=== PATIENT | female | born 1985 | race African-American/Black ===

== ENCOUNTER 2016-09-11 21:40 | Emergency (ER) | payer OTHER ==
[~2016-09-11] VITALS: Ht 160 cm; Wt 71.7 kg
[~2016-09-11 21:40] MED LIST: ACETAMINOPHEN-120 ML PO; ACETAMINOPHEN325 M1 PO; APAP/CODEINE ELI5 M1 OR; CARAFATE 1 GM TA1 G1 GT; CIPROFLOXACIN500 M1 PO; DERMOPLAST SPRAY TP; ERYTHROMYCIN E3.5 G1 OPHTHALMIC; FLEXERIL PO; HYDROCORTISONE 1% TOP; IBUPROFEN 400400 M2 PO; IBUPROFEN 600600 M1 PO; IBUPROFEN 800800 MG PO; IRON18 MG PO; LANSINOH 60 GM60 GM TOP; LOMOTIL TABLET1 EACH PO; METROGEL-VAGINA70 GM VG; NOHOMEMEDICATIONS; NORCO 5-325 TA1 EACH PO; PEPCID20 MG PO; PHENERGAN 25 MG25 M1 PO; PRENATAL VITAMIN OR; PREVACID 30MG C30 M1 PO; PRILOSEC40 MG PO; SENOKOT-S TABL1 EACH PO; SUDAFED30 MG PO; TUCKS MEDICATE1 EAC1 TP; TUMS DUAL ACTI1 EACH PO; ULTRAM 50MG TAB50 MG PO; ZOFRAN ODT4 MG PO
[2016-09-11] MEDS ORDERED: NAPROSYN500 MG PO (23:39)
[2016-09-11] MEDS ORDERED: TRAMADOL 50 MG50 MG PO (23:39)
[2016-09-11 23:50] VITALS: BP 115/68
== END 2016-09-11 23:50 | disposition home or self-care (01) ==
LOC: ER 21:40
DX: S46.911A Strain of unspecified muscle, fascia and tendon at shoulder and upper arm level, right arm, initial encounter (principal); F10.99 Alcohol use, unspecified with unspecified alcohol-induced disorder; X50.9XXA Other and unspecified overexertion or strenuous movements or postures, initial encounter; Y93.89 Activity, other specified; Y92.89 Other specified places as the place of occurrence of the external cause; Y99.8 Other external cause status

== ENCOUNTER 2017-04-17 20:38 | Emergency (ER) | payer OTHER ==
[~2017-04-17] VITALS: Ht 160 cm; Wt 68.0 kg
[~2017-04-17 20:38] MED LIST changes: +NAPROSYN500 MG PO; +TRAMADOL 50 MG50 MG PO
[2017-04-17 21:04] LABS: URINE BILIRUBIN NEGATIVE (Negative); URINE BLOOD NEGATIVE (Negative); URINE CLARITY CLEAR; URINE COLOR YELLOW; URINE GLUCOSE-RANDOM* NEGATIVE (Negative); URINE KETONES NEGATIVE (Negative); URINE LEUKOCYTES-REFLEX NEGATIVE (Negative); URINE NITRITE-REFLEX NEGATIVE (Negative); URINE PROTEIN (DIPSTICK) NEGATIVE (Negative); URINE SPECIFIC GRAVITY >= 1.030 (1.005-1.035); URINE UROBILINOGEN 0.2 E.U./dl (0.2-1.0)
== END 2017-04-17 22:03 | disposition home or self-care (01) ==
LOC: ER 20:38
PROVIDERS: Physician Assistant
DX: J06.9 Acute upper respiratory infection, unspecified (principal); N89.8 Other specified noninflammatory disorders of vagina; K58.9 Irritable bowel syndrome, unspecified

== ENCOUNTER 2017-05-16 13:31 | Emergency (ER) | payer OTHER ==
[~2017-05-16] VITALS: Ht 157.5 cm; Wt 68.0 kg
[2017-05-16] MEDS ORDERED: HYDROCODONE-AP1 EAC6 PO (14:21)
[2017-05-16] MEDS ORDERED: PREDNISONE 20 M20 MG PO (14:21)
[2017-05-16] MEDS ORDERED: CYCLOBENZAPRINE5 MG PO (14:21)
== END 2017-05-16 14:55 | disposition home or self-care (01) ==
LOC: ER 13:31
DX: M54.5 Low back pain (principal); M19.90 Unspecified osteoarthritis, unspecified site; K58.9 Irritable bowel syndrome, unspecified

== ENCOUNTER 2018-10-09 19:28 | Emergency (ER) | payer OTHER ==
[~2018-10-09] VITALS: Ht 160 cm; Wt 71.7 kg
[~2018-10-09 19:28] MED LIST changes: +CYCLOBENZAPRINE5 MG PO; +HYDROCODONE-AP1 EAC6 PO; +PREDNISONE 20 M20 MG PO
[2018-10-09] MEDS ORDERED: CORTISPORIN OTI10 M2 OTIC (19:46)
[2018-10-09] MEDS ORDERED: IBUPROFEN 600600 M1 PO (19:46)
[2018-10-09 19:53] VITALS: BP 114/72
== END 2018-10-09 20:02 | disposition home or self-care (01) ==
LOC: ER 19:28
DX: H60.92 Unspecified otitis externa, left ear (principal); J06.9 Acute upper respiratory infection, unspecified

== ENCOUNTER 2020-05-28 08:07 | Emergency (ER) | payer OTHER ==
[~2020-05-28] VITALS: Ht 160 cm; Wt 68.0 kg
[~2020-05-28 08:07] MED LIST changes: +CORTISPORIN OTI10 M2 OTIC
[2020-05-28 08:13] VITALS: BP 120/84
[2020-05-28] MEDS ORDERED: ZANAFLEX4 M1 PO (10:42)
[2020-05-28] MEDS ORDERED: NAPROSYN500 M1 PO (10:42)
[2020-05-28 11:40] LABS: URINE BILIRUBIN NEGATIVE (Negative); URINE BLOOD NEGATIVE (Negative); URINE CLARITY CLEAR; URINE COLOR YELLOW; URINE GLUCOSE-RANDOM* NEGATIVE (Negative); URINE KETONES 1+ (Negative); URINE LEUKOCYTES TRACE (Negative); URINE NITRITE NEGATIVE (Negative); URINE PROTEIN (DIPSTICK) NEGATIVE (Negative); URINE SPECIFIC GRAVITY >= 1.030 (1.005-1.035); URINE UROBILINOGEN 0.2 E.U./dl (0.2-1.0)
== END 2020-05-28 11:00 | disposition home or self-care (01) ==
LOC: ER 08:07
PROVIDERS: Emergency Medicine
DX: M54.6 Pain in thoracic spine (principal)